=== PATIENT | female | born 1965 | race American Indian/Alaskan Native ===

== ENCOUNTER 2018-03-24 08:42 | Emergency (ER) | payer OTHER ==
[2018-03-24] MEDS ORDERED: MORPHINE IV ONE (13:46)
--- NOTE | 2018-03-24 13:51 | Emergency Department Report ---
Blank Doc - Documentation Documentation: Patient presents to the emergency department with a chief complaint right flank pain that started 1 week ago. The patient denies any radiation of pain but describes it as being intense without anything making it better or worse. Of concern the patient is having nausea and vomiting with the pain. Denies history of kidney stones. Patient denies chest pain, abdominal pain, headache. IV pain medicine and antiemetics have been ordered along with a CT of the abdomen for evaluation of flank pain. She'll be turned over to the Midlevel provider with consultation provided by me if needed
[2018-03-24 13:58] LABS: Basophils # (Auto) 0.1 K/mm3 (0.0-0.1); Basophils % (Auto) 1.3 % (0.0-1.8); Eosinophils # (Auto) 0.1 K/mm3 (0.0-0.4); Eosinophils % (Auto) 1.6 % (0.0-4.3); Hematocrit 38.8 % (30.3-42.9); Hemoglobin 12.4 gm/dl (10.1-14.3); Lymphocytes # (Auto) 3.1 K/mm3 (1.2-5.4); Lymphocytes % (Auto) 36.1 % (13.4-35.0); Mean Corpuscular HGB Conc 32 % (30-34); Monocytes # (Auto) 0.6 K/mm3 (0.0-0.8); Monocytes % (Auto) 6.7 % (0.0-7.3); Platelet Count 294 K/mm3 (140-440); Red Blood Count 5.83 M/mm3 (3.65-5.03); Red Cell Distribution Width 16.9 % (13.2-15.2)
[2018-03-24 14:15] LABS: BUN/Creatinine Ratio 24; Blood Urea Nitrogen 12 mg/dL (7-17); Calcium 8.8 mg/dL (8.4-10.2); Hemolysis Index 24
[2018-03-24 14:26] LABS: Mean Corpuscular Hemoglobin 21 pg (28-32); Mean Corpuscular Volume 67 fl (79-97)
--- NOTE | 2018-03-24 14:27 | Cat Scan Report ---
CT ABDOMEN PELVIS WITHOUT CONTRAST: HISTORY: Flank pain. COMPARISON: Report from a CT abdomen and pelvis dated 05/31/11. TECHNIQUE: Helical CT in 1.25mm intervals without IV contrast. Sagittal and coronal reconstructions. FINDINGS: Lung bases: Normal. Liver: Normal. Biliary system: Normal. Pancreas: Normal. Spleen: Normal. Kidneys/ureters/bladder: Normal. Adrenal glands: Normal. Aorta: Normal. Intestines: Normal. Appendix: Normal. Pelvic viscera: 3 simple appearing cysts measuring up to 1.8 cm are identified in the left adnexal region which probably represent ovarian cysts. The right adnexa is unremarkable. The uterus is small in size but otherwise unremarkable. Ascites: None. Adenopathy: None. Musculoskeletal: Intact. Minimal lumbar spondylosis. IMPRESSION: 3 simple appearing left adnexal cysts are identified measuring up to 1.8 cm. No evidence for nephrolithiasis.
[2018-03-24 15:17] LABS: Alanine Aminotransferase 14 units/L (7-56)
--- NOTE | 2018-03-24 15:28 | Emergency Department Report ---
ED Back Pain/Injury HPI - General Chief Complaint: Back Pain/Injury Stated Complaint: FLANK PAIN Time Seen by Provider: 03/24/18 13:00 Source: patient Mode of arrival: Ambulatory Limitations: No Limitations - History of Present Illness Initial Comments: This is a 52-year-old -[place] female presents with right flank pain. Past medical history of hypertension. Patient reports pain remains on the right side of the lower back, at times radiate to the left flank. Patient states at times she had some nausea and headache with back pain. Patient denies vomiting. Patient also complained and began off blood pressure medication for 2 years. Patient denies recent injury, frequency, urgency, dysuria, vaginal discharge or bleeding, and chest pain. MD Complaint: back pain Onset/Timin -: week(s) Similar Symptoms Previously: No Place: home Radiation: none Severity: moderate Severity scale (0 -10): 7 Quality: aching Consistency: intermittent Improves With: none Worsens With: movement Context: unknown Associated Symptoms: nausea/vomiting (nausea without vomiting). denies: confusion, weakness, chest pain, numbness, difficulty walking, cough, difficulty urinating, loss of appetite, malaise Treatments Prior to Arrival: NSAIDS - Related Data Previous Rx's Medication Instructions Recorded Last Taken Type Cyclobenzaprine [Flexeril 10 MG 10 mg PO TID PRN #15 tablet 03/24/18 Unknown Rx TAB] Ibuprofen [Motrin 800 MG tab] 800 mg PO Q8HR PRN #15 tablet 03/24/18 Unknown Rx Allergies Allergy/AdvReac Type Severity Reaction Status Date / Time No Known Allergies Allergy Unverified 03/24/18 08:48 ED Review of Systems ROS: Stated complaint: FLANK PAIN Other details as noted in HPI Constitutional: denies: chills, fever Respiratory: denies: cough, shortness of breath, wheezing Cardiovascular: denies: chest pain, palpitations Gastrointestinal: denies: abdominal pain, nausea, diarrhea Musculoskeletal: back pain (right flank pain). denies: joint swelling, arthralgia Skin: denies: rash, lesions Neurological: denies: headache, weakness, paresthesias Psychiatric: denies: anxiety, depression ED Back Pain Physical Exam - Exam General: Vital signs noted. No distress. Alert and acting appropriately. Back/Abdomen: Yes Flank Tenderness (right), No Abdominal Tenderness, No Perithoracic Tenderness, No Perilumbar Tenderness, No Sacroiliac Tenderness, No Straight Leg Raise Pain Neuro: Yes Normal Sensation, Yes Normal DTR's, Yes Normal Gait, No Motor Weakness ED Course Vital Signs 03/24/18 08:48 Temperature 98.8 F Pulse Rate 70 Respiratory 18 Rate Blood Pressure 211/99 O2 Sat by Pulse 99 Oximetry ED Medical Decision Making - Lab Data Result diagrams: 03/24/18 13:50 03/24/18 13:50 - Medical Decision Making Patient was examined by myself in fast track. Blood pressure elevated but no acute distress. Reevaluation of blood pressure, trending down. Obtained labs and CTA of chest. All labs are unremarkable and negative CTA. Patient informed of results. Start ibuprofen and cyclobenzaprine for muscle strain. Plan discussed with patient to discharge home and treat outpatient. Referral to Orthopedic surgery. Patient discharged home in stable condition. Patient will need to follow-up with the primary care doctor for management of hypertension. Follow up with PCP in 2-3 days. Critical care attestation.: If time is entered above; I have spent that time in minutes in the direct care of this critically ill patient, excluding procedure time. ED Disposition Clinical Impression: Right flank pain, Strain of muscle, fascia and tendon of lower back, initial encounter, Asymptomatic hypertension Disposition: DC-01 TO HOME OR SELFCARE Is pt being admited?: No Does the pt Need Aspirin: No Condition: Stable Instructions: Low Back Strain (ED), Core Strengthening Exercises (GEN), Hypertension (ED) Additional Instructions: Rest Use ice or heat on affected area for 20 minutes and off for 2 hours. Take pain medication as needed for pain. Don't drive or operate heavy machinery while taking muscle relaxers because they may cause drowsiness. Encourage stop smoking to reduce cardiovascular risk. Moderate caffeine consumption is acceptable. Begin and maintain aerobic exercise, with a goal of at least 30 minutes of moderate intensity, dynamic aerobic exercise (walking, jogging, cycling, or swimming) 5 days per week to total 150 minutes as tolerated or recommended by a physician. Follow up with Primary Care Provider in 2-3 days. Prescriptions: Cyclobenzaprine [Flexeril 10 MG TAB] 10 mg PO TID PRN #15 tablet PRN Reason: Muscle Spasm Ibuprofen [Motrin 800 MG tab] 800 mg PO Q8HR PRN #15 tablet PRN Reason: Pain , Severe (7-10) Referrals: SAGAR MEDINA MD [Staff Physician] - 3-5 Days [facility] [Outside] - 3-5 Days [facility] [Outside] - 3-5 Days Forms: Work/School Release Form(ED) Time of Disposition: 16:53 Print Language: BELARUSIAN
[2018-03-24 16:15] VITALS: BP 188/77
[2018-03-24 17:12] LABS: Lipase 14 units/L (13-60)
== END 2018-03-24 17:05 | disposition home or self-care (01) ==
LOC: ED 08:42
DX: S39.012A Strain of muscle, fascia and tendon of lower back, initial encounter (principal); R10.9 Unspecified abdominal pain; I10 Essential (primary) hypertension; X58.XXXA Exposure to other specified factors, initial encounter; Y93.89 Activity, other specified; Y99.8 Other external cause status; Y92.89 Other specified places as the place of occurrence of the external cause
CPT/HCPCS: 36415; 74176; 80053; 83690; 85025; 96374; 99284; J2270